=== PATIENT | female | born 1975 | race American Indian/Alaskan Native ===

== ENCOUNTER 2021-05-02 14:54 | Emergency (ER) | payer SELFPAY ==
[2021-05-02 15:00] VITALS: BP 113/77
--- NOTE | 2021-05-02 17:03 | XRay Report ---
CHEST 2 VIEWS INDICATION / CLINICAL INFORMATION: productive cough. COMPARISON: None available. FINDINGS: SUPPORT DEVICES: None. HEART / MEDIASTINUM: No significant abnormality. LUNGS / PLEURA: No significant pulmonary or pleural abnormality. No pneumothorax. ADDITIONAL FINDINGS: No significant additional findings. IMPRESSION: 1. No acute findings. Signer Name: Rio Masterson MD Signed: 05/02/2021 4:59 PM Workstation Name: [id number]
--- NOTE | 2021-05-02 17:10 | Emergency Department Report ---
- General Chief Complaint: Dyspnea/Respdistress Stated Complaint: COUGHING Time Seen by Provider: 05/02/21 16:19 Source: patient Mode of arrival: Ambulatory Limitations: No Limitations - History of Present Illness Initial Comments: Patient is a 45-year-old F [place] female with no significant past medical history is presenting with cough cold congestion and cold-like symptoms over the last 4 days. Patient tested negative for COVID-19 yesterday and the day before. Patient states she has body aches headache productive cough yellow sputum as well as loss of taste and smell. Patient was not vaccinated against COVID-19 - Related Data Previous Rx's Medication Instructions Recorded Last Taken Type Albuterol Mdi (or & Nicu Only) 2 puff IH QID PRN #1 inhalation 05/02/21 Unknown Rx [ProAir HFA Inhaler] Benzonatate [Tessalon Perles] 100 mg PO Q8HR #10 capsule 05/02/21 Unknown Rx Dexamethasone [Decadron] 6 mg PO DAILY #5 tablet 05/02/21 Unknown Rx Fluticasone [Flonase] 1 spray NS QDAY #1 bottle 05/02/21 Unknown Rx Ketorolac [Toradol] 10 mg PO Q6H PRN #12 tablet 05/02/21 Unknown Rx Allergies Allergy/AdvReac Type Severity Reaction Status Date / Time codeine Allergy Unknown Verified 05/02/21 15:01 acetaminophen [From Vicodin] AdvReac Vomiting Verified 05/02/21 15:01 hydrocodone [From Vicodin] AdvReac Vomiting Verified 05/02/21 15:01 ED Review of Systems ROS: Stated complaint: COUGHING Other details as noted in HPI Comment: All other systems reviewed and negative ED Past Medical Hx - Medications Home Medications: Home Medications Medication Instructions Recorded Confirmed Last Taken Type Albuterol Mdi (or & Nicu Only) 2 puff IH QID PRN #1 inhalation 05/02/21 Unknown Rx [ProAir HFA Inhaler] Benzonatate [Tessalon Perles] 100 mg PO Q8HR #10 capsule 05/02/21 Unknown Rx Dexamethasone [Decadron] 6 mg PO DAILY #5 tablet 05/02/21 Unknown Rx Fluticasone [Flonase] 1 spray NS QDAY #1 bottle 05/02/21 Unknown Rx Ketorolac [Toradol] 10 mg PO Q6H PRN #12 tablet 05/02/21 Unknown Rx ED Physical Exam - General Limitations: No Limitations General appearance: alert, in no apparent distress - Head Head exam: Present: atraumatic, normocephalic - Eye Eye exam: Present: normal appearance - ENT ENT exam: Present: normal orophraynx, mucous membranes moist - Neck Neck exam: Present: normal inspection - Respiratory Respiratory exam: Present: normal lung sounds bilaterally. Absent: respiratory distress, wheezes, rales, rhonchi - Cardiovascular Cardiovascular Exam: Present: regular rate, normal rhythm. Absent: normal heart sounds, systolic murmur, diastolic murmur, rubs, gallop - GI/Abdominal GI/Abdominal exam: Present: soft, normal bowel sounds. Absent: distended, tenderness, guarding - Extremities Exam Extremities exam: Present: normal inspection - Back Exam Back exam: Present: normal inspection - Neurological Exam Neurological exam: Present: alert, oriented X3 - Psychiatric Psychiatric exam: Present: normal affect, normal mood - Skin Skin exam: Present: warm, dry, intact, normal color. Absent: rash ED Course Vital Signs 05/02/21 14:59 Temperature 98.5 F Pulse Rate 88 Respiratory 20 Rate Blood Pressure 113/77 [Right] O2 Sat by Pulse 98 Oximetry ED Medical Decision Making - Radiology Data Ordering Physician: ANGELA WANG MD Date of Service: 05/02/21 Procedure(s): XR chest routine 2V Accession Number(s): [id number] cc: ANGELA WANG MD Fluoro Time In Minutes: CHEST 2 VIEWS INDICATION / CLINICAL INFORMATION: productive cough. COMPARISON: None available. FINDINGS: SUPPORT DEVICES: None. HEART / MEDIASTINUM: No significant abnormality. LUNGS / PLEURA: No significant pulmonary or pleural abnormality. No pneumothorax. ADDITIONAL FINDINGS: No significant additional findings. IMPRESSION: 1. No acute findings. Signer Name: Rio Masterson MD Signed: 05/02/2021 4:59 PM Workstation Name: [employer] - Medical Decision Making Patient is a 45-year-old F [place] female who is presenting with Covid-like symptoms. Chest x-ray is negative for pneumonia. O2 saturations within normal limits and lungs are clear. Patient given medication for symptomatic relief and discharged home. Did explain to the patient that there are a good amount of patients who did not test positive until later in the course. Patient encouraged to get another Covid test in approximately 5 days Critical care attestation.: If time is entered above; I have spent that time in minutes in the direct care of this critically ill patient, excluding procedure time. ED Disposition Clinical Impression: Suspected COVID-19 virus infection Acute bronchitis Qualifiers: Bronchitis organism: unspecified organism Qualified Code(s): J20.9 - Acute bronchitis, unspecified Disposition: 01 HOME / SELF CARE / HOMELESS Is pt being admited?: No Does the pt Need Aspirin: No Condition: Stable Instructions: Acute Bronchitis (ED), Acute Bronchitis, Adult, [id number], COVID-19 Frequently Asked Questions, Prevent the Spread of COVID-19 if You Are Sick - [facility] Additional Instructions: Patient did not test positive for COVID-19 until 7 to 10 days into their illness. Please get another COVID-19 test in approximately 5 days. Also please by a home portable pulse oximeter to check your oxygen levels at home. These c an be found at any local pharmacy such as [facility] and [facility]. The device is approximately $20-$30. Please check your oxygen saturation level and return to the emergency department if you are resting oxygen level is less than 90% Referrals: MIHAI JUAREZ MD [Referring] - 3-5 Days Time of Disposition: 17:11
== END 2021-05-02 17:19 | disposition home or self-care (01) ==
LOC: ED 14:54
DX: J20.9 Acute bronchitis, unspecified (principal); Z20.822 Contact with and (suspected) exposure to COVID-19
CPT/HCPCS: 71046; 99283